=== PATIENT | female | born 1965 | race Caucasian/White ===

== ENCOUNTER → 2016-11-01 | Outpatient (CLI) | payer OTHER ==
--- NOTE | 2016-11-01 10:35 | RAD ---
DATE: 11/01/2016 EXAM: DIGITAL SCREEN BILAT W/CAD HISTORY: Routine screening COMPARISON: 08/26/2015 This study was interpreted with the benefit of Computerized Aided Detection (CAD). FINDINGS: There are scattered fibroglandular densities in the anterior aspects of both breasts. On the cc view of the left breast a small nodular opacity is now seen laterally. There is a nearby blood vessel. It is possible that this is a vascular loop. There is a questionable corresponding opacity in the superior aspect of the left breast on the oblique view. No other new or enlarging breast densities are seen. Benign type calcifications are present. No suspicious microcalcifications are evident. IMPRESSION: 1. Possible left breast nodule as described above. Diagnostic mammograms to include spot compression and straight mediolateral views are suggested for further evaluation. If a nodule is delineated, sonography would then be indicated. 2. Stable right mammograms BI-RADS CATEGORY: 0 INCOMPLETE: NEEDS ADDITIONAL IMAGING EVALUATION AND/OR PRIOR MAMMOGRAMS FOR COMPARISON. RECOMMENDED FOLLOW-UP: ADD ADDITIONAL IMAGING PQRS compliance statement: Patient information was entered into a reminder system with a target due date for the next mammogram. Mammography is a sensitive method for finding small breast cancers, but it does not detect them all and is not a substitute for careful clinical examination. A negative mammogram does not negate a clinically suspicious finding and should not result in delay in biopsying a clinically suspicious abnormality. "Our facility is accredited by the [employer] Mammography [employer]."
== END | disposition home or self-care (01) ==
LOC: MAMMO 08:52
PROVIDERS: ATTEND Physician Assistant Medical
DX: Z12.31 Encounter for screening mammogram for malignant neoplasm of breast (principal)
CPT/HCPCS: G0202; 77067

== ENCOUNTER → 2016-11-09 | Outpatient (CLI) | payer OTHER ==
--- NOTE | 2016-11-09 15:55 | RAD ---
DATE: 11/09/2016 EXAM: DIGITAL DIAGNOSTIC LT, BREAST LEFT HISTORY: Possible developing nodule left breast COMPARISON: Screening examination 11/01/2016 This study was interpreted with the benefit of Computerized Aided Detection (CAD). FINDINGS: Breast Density: SCATTERED The breast parenchyma shows scattered fibroglandular densities. Breast parenchyma level B. An ML view as well as a coned compression view and rolled cc views were obtained. The cone compression rolled cc views a nodular density is seen compatible with that demonstrated on the screening examination. A definite corresponding nodule is not seen on the ML view. Ultrasound of the outer aspect of the breast, targeted to the be zone was performed. At the 3:00 position of the breast, 4 cm from the nipple is a septated mass probably reflecting a complex cyst measuring approximately 3 mm in greatest dimension. At the 4:00 position of the breast, 5 cm from the nipple there is a hypoechoic 4 mm mass which may reflect a complex cyst. The ultrasound masses are most compatible with benign processes. IMPRESSION: Probable benign findings left breast. BI-RADS CATEGORY: 3 PROBABLE BENIGN FINDING(S-SHORT INTERVAL FOLLOW-UP SUGGESTED RECOMMENDED FOLLOW-UP: 6M 6 MONTH FOLLOW-UP PQRS compliance statement: Patient information was entered into a reminder system with a target due date 05/11/2017 for the next mammogram. Mammography is a sensitive method for finding small breast cancers, but it does not detect them all and is not a substitute for careful clinical examination. A negative mammogram does not negate a clinically suspicious finding and should not result in delay in biopsying a clinically suspicious abnormality. "Our facility is accredited by the [employer] Mammography [employer]."
== END | disposition home or self-care (01) ==
LOC: MAMMO 13:26
PROVIDERS: ATTEND Physician Assistant Medical
DX: R92.8 Other abnormal and inconclusive findings on diagnostic imaging of breast (principal)
CPT/HCPCS: 76641; G0206; 77065

== ENCOUNTER → 2017-06-24 | Outpatient (CLI) | payer OTHER ==
--- NOTE | 2017-06-24 16:10 | RAD ---
DATE: 06/24/2017 EXAM: BREAST LEFT, MAMMO YANELY DIAG LT HISTORY: Left breast nodule follow-up COMPARISON: Left breast ultrasound 11/09/2016, mammogram 11/09/2016, bilateral screening mammogram 11/01/2016 and 08/26/2015 This study was interpreted with the benefit of Computerized Aided Detection (CAD ). The breast parenchyma shows scattered fibroglandular densities. Breast parenchyma level B. FINDINGS: Left breast mammogram: Left breast digital 2-D and 3-D tomosynthesis. CC and MLO views were obtained. There are 2 adjacent stable circumscribed masses in the lateral left breast. Patient will proceed to left breast ultrasound for further evaluation. Limited left breast ultrasound: At the 4:00 position 5 cm from the nipple, there is no significant change in a tiny hypoechoic structure with internal debris and no evidence of blood flow measuring up to 0.3 cm, previously 0.3 cm. At the 3:00 position 4 cm from the nipple, there is no significant change in a similar appearing hypoechoic structure with internal debris and no internal blood flow measuring up to 0.4 cm. Impression: Two stable left breast tiny hypoechoic structures with internal debris may represent complicated cysts. Follow-up limited left breast ultrasound and at the same time bilateral screening mammogram with a target date of October 2017 is recommended. BI-RADS CATEGORY: 3 PROBABLY BENIGN FINDING(S)-SHORT INTERVAL FOLLOW-UP SUGGESTED RECOMMENDED FOLLOW-UP: As above. PQRS compliance statement: Patient information was entered into a reminder system with a target due date for the next mammogram. Mammography is a sensitive method for finding small breast cancers, but it does not detect them all and is not a substitute for careful clinical examination. A negative mammogram does not negate a clinically suspicious finding and should not result in delay in biopsying a clinically suspicious abnormality. "Our facility is accredited by the [employer] Mammography [employer]." MTDD
== END | disposition home or self-care (01) ==
LOC: MAMMO 09:42
PROVIDERS: ATTEND Physician Assistant Medical
DX: R92.8 Other abnormal and inconclusive findings on diagnostic imaging of breast (principal)
CPT/HCPCS: 76641; 77065; G0279; 77061